=== PATIENT | female | born 1980 | race Caucasian/White ===

== ENCOUNTER 2017-04-18 17:29 | Emergency (ER) | payer MEDICAID ==
[~2017-04-18] VITALS: Ht 172.7 cm; Wt 73.2 kg
[~2017-04-18 17:29] MED LIST: CEPH250T PO; CLIN-79 PO; CLIN-80 PO
[2017-04-18] MEDS ORDERED: DOXY100C43 PO (17:40)
[2017-04-18 18:17] LABS: URINE HCG NEGATIVE (NEG)
[2017-04-18 18:18] LABS: CLARITY,URINE Clear (Clear); COLOR,URINE Yellow (Yellow); GLUCOSE, URINE Negative (Neg); KETONES,URINE Trace mg/dl (Neg); LEUKOCYTE ESTERASE ,URINE Negative (Neg); NITRITES, URINE Negative (Neg); OCCULT BLOOD,URINE Negative (Neg); PH,URINE 5.5 (4.8-8.0); PROTEIN,URINE Negative (Neg)
[2017-04-18] MEDS ORDERED: doxycycline hyclate 100mg tablet.DR PO STA (18:18)
[2017-04-18] MEDS ORDERED: CefTRIAXone 250MG IM Kit w/LIDOcaine IM ONE (18:20)
[2017-04-18] MEDS ORDERED: ondansetron 4mg rapidly disintigrating tab PO ONE (18:20)
[2017-04-18] MEDS ORDERED: metroNIDAZOLE 500mg tablet PO ONE ×2 (18:20→18:50)
[2017-04-18 18:25] LABS: UA COLLECTION TYPE CLN CATCH MIDSTREAM
[2017-04-18 18:56] VITALS: BP 108/65
== END 2017-04-18 19:11 | disposition home or self-care (01) ==
LOC: ER 17:31
DX: H05.011 Cellulitis of right orbit (principal); F12.10 Cannabis abuse, uncomplicated; Z20.2 Contact with and (suspected) exposure to infections with a predominantly sexual mode of transmission; Z72.0 Tobacco use; Z87.442 Personal history of urinary calculi; Z56.0 Unemployment, unspecified; Z88.5 Allergy status to narcotic agent; Z88.2 Allergy status to sulfonamides; Z79.899 Other long term (current) drug therapy
CPT/HCPCS: 36415; 81003; 81025; 87491; 87591; 96372; 99284; J0696; J3490

== ENCOUNTER 2018-02-21 15:24 | Emergency (ER) | payer MEDICAID ==
[~2018-02-21] VITALS: Ht 172.7 cm; Wt 66.6 kg
[~2018-02-21 15:24] MED LIST changes: -CEPH250T PO; -CLIN-79 PO; -CLIN-80 PO; +CLIN150C8 PO; +CLIN300C85 PO
[2018-02-21 15:36] VITALS: BP 114/70
[2018-02-21] MEDS ORDERED: CefTRIAXone 1000mg IM Kit (w/lidocaine diluent) IM ONE (16:00)
[2018-02-21] MEDS ORDERED: azithromycin 250mg tablet PO ONE (16:00)
[2018-02-21] MEDS ORDERED: ondansetron 4mg rapidly disintigrating tab PO ONE (16:00)
[2018-02-21] MEDS ORDERED: metroNIDAZOLE 500mg tablet PO ONE (16:00)
[2018-02-21 16:04] LABS: CLARITY,URINE CLEAR (Clear); COLOR,URINE YELLOW (Yellow); GLUCOSE, URINE NEGATIVE (Neg); KETONES,URINE NEGATIVE (Neg); LEUKOCYTE ESTERASE ,URINE NEGATIVE (Neg); NITRITES, URINE NEGATIVE (Neg); OCCULT BLOOD,URINE NEGATIVE (Neg); PROTEIN,URINE NEGATIVE (Neg); URINE HCG NEGATIVE (NEG); UROBILINOGEN,URINE 0.2 E.U/dL (0.2-1.0)
[2018-02-21 16:07] LABS: UA COLLECTION TYPE CLN CATCH MIDSTREAM
== END 2018-02-21 16:39 | disposition home or self-care (01) ==
LOC: ER 15:25
DX: Z20.2 Contact with and (suspected) exposure to infections with a predominantly sexual mode of transmission (principal); F12.90 Cannabis use, unspecified, uncomplicated; Z88.5 Allergy status to narcotic agent; Z88.2 Allergy status to sulfonamides; Z79.2 Long term (current) use of antibiotics; Z56.0 Unemployment, unspecified
CPT/HCPCS: 81003; 81025; 96372; 99284; J0696; J3490